=== PATIENT | male | born 1980 | race Caucasian/White ===

== ENCOUNTER 2024-01-10 08:03 | Emergency (ER) | payer OTHER ==
[~2024-01-10] VITALS: Ht 177.8 cm; Wt 104.3 kg
[2024-01-10 08:03] VITALS: BP_SYST 208; PULSE 77; RESP 20; TEMP 98.4; O2SAT 95
[2024-01-10] MEDS: IBUPROFEN 800 MG TABLET PO ONE (08:53)
[2024-01-10 08:57] VITALS: BP_SYST 208; PULSE 77; RESP 20; TEMP 98.4; O2SAT 95
== END 2024-01-10 08:57 | disposition home or self-care (01) ==
LOC: SED 08:03
DX: S13.4XXA Sprain of ligaments of cervical spine, initial encounter (principal); S43.492A Other sprain of left shoulder joint, initial encounter; S70.02XA Contusion of left hip, initial encounter; Z79.899 Other long term (current) drug therapy; W23.0XXA Caught, crushed, jammed, or pinched between moving objects, initial encounter; Y93.89 Activity, other specified; Y92.89 Other specified places as the place of occurrence of the external cause; Y99.8 Other external cause status
CPT/HCPCS: 72040; 73590; 99284